=== PATIENT | female | born 1985 | race Caucasian/White ===

== ENCOUNTER → 2017-01-24 | Outpatient (CLI) | payer BC | LOC: MOB LAB 11:14 | DX: R11.2 Nausea with vomiting, unspecified (principal); F17.210 Nicotine dependence, cigarettes, uncomplicated | CPT/HCPCS: 36415; 84703 ==

== ENCOUNTER 2017-06-18 16:37 | Emergency (ER) | payer SELFPAY ==
[2017-06-18 19:00] VITALS: RESP 16; TEMP 97.8
--- NOTE | 2017-06-19 04:14 | PDOC ---
Hand / Wrist Injury HPI - General Chief Complaint: Upper Extremity Problem/Injury Stated Complaint: caught fingers between 2 boards, left hand Date Seen by Provider: 06/18/17 Time Seen by Provider: 16:45 Source: POSITIVE: Patient, Spouse Exam Limitations: POSITIVE: No limitations Nurse's Notes Reviewed & Considered: Yes - History of Present Illness Initial Comments: The patient is a 31-year-old female. She was carrying some wood and tripped and fell onto the ground. 2 pieces of wood dropped onto the dorsum of her left fourth and fifth fingers. Incident occurred approximately 2 hours [employer]. Have you received a tetanus shot in the past 10 years?: Unknown Body Location Affected: REPORTS: Upper Extremity (L) Timing: REPORTS: Abrupt Duration: 1-3 hours Severity: Moderate Context: REPORTS: Crush Location of Injury: REPORTS: Left, 4th Finger, 5th Finger Quality: REPORTS: "Pain" Modifying Factors: REPORTS: Other (Exacerbated by direct palpation) Associated Symptoms: DENIES: Arm (R), Arm (L), Tingling Distally, Numbness Distally, Loss of Feeling, Loss of Power, Other Any Prior Injuries Related to Current Complaint?: No - Patient Home Medications Home Medications: Home Medications Mometasone/Formoterol [Dulera 100 Mcg/5 Mcg Inhaler] 2 inh INH DAILY 08/15/16 Promethazine HCl 1 tab PO TID PRN #90 tab 10/26/16 Vortioxetine Hydrobromide [Trintellix] 1 tab PO QD #30 tab 10/26/16 Hydroxyzine Pamoate 25 mg PO BID cap 01/24/17 - Patient Allergies Allergies/Adverse Reactions: Allergies Allergy/AdvReac Type Severity Reaction Status Date / Time No Known Drug Allergies Allergy NOT Unverified 01/24/17 10:40 APPLICABLE Past Medical History - heen HEENT History: Denies History Cardiovascular History: Denies History Respiratory History: Denies History Gastrointestinal History: Denies History Genitourinary History: Denies History Endocrine History: Denies History Musculoskeletal History: Arthritis, Rheumatoid Arthritis, Back Pain, Other ( please comment) Prosthesis or Implant: No Additional Musculoskeletal History: RA SINCE AGE 4 Neurological History: Denies History Blood Disorders: Denies History Psychiatric History: Depression, Anxiety Disorders History of Sexually Transmitted Diseases: No LMP: 05/21 Cancer History: Denies History In Past Year Been Physically Harmed or Verbally Threatened: No History of MDRO: No History of Other Communicable Diseases: No Tobacco Use: Current Every Day Smoker Alcohol Use: Rarely Substance Use Type: None Previous Surgical History: Yes Type / Date of Surgery: TUBAL LIGATION Significant Family History: No pertinent family hx Past Medical History Reviewed: Reviewed - No Changes ROS - Limitations ROS Limitations: No Limitations Constitution: REPORTS: Denies Symptoms Cardiovascular: REPORTS: Denies Cardiac Symptoms Respiratory: REPORTS: Denies Resp Symptoms Neurological: REPORTS: Denies Neuro Symptoms Gastrointestinal: REPORTS: Denies GI Symptoms Endocrine: REPORTS: Denies Symptoms Musculoskeletal: REPORTS: Recent Injury (2 distal halves of the left fourth and fifth finger; see diagram) Genitourinary: REPORTS: Denies Symptoms Eyes: REPORTS: Denies Symptoms ENT: REPORTS: Denies Symptoms Skin: REPORTS: Other (Small abrasion dorsum of left fifth finger over middle phalange; see diagram) Lympathic: REPORTS: Denies Lympathic Symptoms Immunologic: POSITIVE: Denies Symptoms Psychiatric: POSITIVE: Denies Psych Symptoms Hand / Wrist Injury Exam - General Appearance General Appearance: POSITIVE: Alert, Cooperative, No Acute Distress, No Evidence of Trauma - Extremities Upper Extremity: POSITIVE: No Evidence of FB, Normal ROM, Soft Tissue Tenderness , Bony Tenderness, Swelling (mild), Uninjured Above Wrist, See Diagram. NEGATIVE: Ecchymosis, Deformity, Complete Nail Injury, Partial Avulsion, Limited ROM, Limited ROM d/t Pain, Ltd. ROM d/t Funct. Def., Snuff Box Position Tender, Axial Thumb Load Pain Neurovascular / Tendon: POSITIVE: Sensation Normal, Motor Normal, No Vascular Compromise, Tendon Function Normal Skin: POSITIVE: See Diagram (abrasion left fifth finger) - Respiratory / CVS Respiratory / CVS: POSITIVE: Chest Non Tender, No Ecchymosis, Breath Sounds Normal, No Respiratory Distress, Heart Sounds Normal, Regular Rate/Rhythm Peripheral Pulses: Radial (R): 2+, Radial (L): 2+ Images - Hands Hand: 1 - Pain on palpation 2 - Pain on palpation 3 - Abrasion Procedure - Splinting Time Splint Applied: 17:20 Location: ulnar gutter splint left hand and wrist Pre-Proc Neuro Vasc Exam: Normal Splint Type: Ortho-Glass Splint Form: Ulnar Applied By:: Nurse Post-Proc Neuro Vasc Exam: Normal Hand / Wrist Injury Progress - Results Reviewed by me Xrays/CTs/US Reviewed by me: Yes Discussed with Radiologist: No Radiology Findings: X-ray left hand shows no fractures or dislocations - Patient's Progress Pain Medication Addressed: POSITIVE: Yes (recommended Advil or Tylenol) School/Work Release Addressed: POSITIVE: Not Applicable Re-Examine Time: 17:25 Re-Examine Comment: Relief of discomfort with splinting. Abrasions cleansed and bacitracin dressing placed. Status: POSITIVE: Improved, Re-Examined - Consult Counseled: POSITIVE: Patient, Family (), RE: Radiology Results, RE: DX, RE: Need for F/U Patient Care Time - Estimated PCT Patient Care Time (In Minutes): 27 Vital Signs - VS Reviewed Vital Signs Reviewed: Yes Discharge Clinical Impression: Contusion Discharge Disposition: Discharged to Home Condition: Good Patient Instructions Given at Discharge: Contusion in Adults (ED) Additional Instructions: X-ray of your left hand shows no fractures or dislocations. I believe you do have a contusion to your hand. I've applied a splint to your hand that you can wear as necessary for comfort. Elevate hand. Cool compresses. Advil or Tylenol for pain. Return here anytime if condition worsens. Follow-up with your primary care provider. Follow Up With: PHILIP CARNEY [Primary Care Provider] - (Instructions as above. Return as necessary. Follow-up with your primary care provider.)
--- NOTE | 2017-06-20 12:01 | DI ---
History: Trauma, hand pain, comparison: None Findings: No fracture. No malalignment. No destructive changes The degenerative changes No soft tissue foreign bodies Impression Unremarkable plain film study of the hand
== END 2017-06-18 17:50 | disposition home or self-care (01) ==
LOC: ER 16:37
DX: S60.417A Abrasion of left little finger, initial encounter (principal); S60.222A Contusion of left hand, initial encounter; W20.8XXA Other cause of strike by thrown, projected or falling object, initial encounter
CPT/HCPCS: 29125; 73120; 99282